=== PATIENT | female | born 1990 | race African-American/Black ===

== ENCOUNTER 2016-12-12 09:30 | Emergency (ER) | payer OTHER ==
[~2016-12-12] VITALS: Ht 162.6 cm; Wt 63.0 kg
[~2016-12-12 09:30] MED LIST: AMOXICILLIN500 MG PO; CIPROFLOXACN500 MG PO; ERYTHROMYCIN O3.5 GM OU; IBUPROFEN600 MG PO; LORTAB 7.57.5 MG PO; MACROBID100 MG PO; NO HOME MEDS; PRE-NATAL PO
[2016-12-12] MEDS ORDERED: MOTRIN800 MG PO (10:23)
[2016-12-12 10:45] VITALS: BP 103/71
== END 2016-12-12 10:45 | disposition home or self-care (01) | DRG 563 ==
LOC: ED 09:30
PROC: 2W3DX1Z Immobilization of Left Lower Arm using Splint (ICD-10-PCS; principal; 2016-12-12)
DX: S63.502A Unspecified sprain of left wrist, initial encounter (principal); W18.30XA Fall on same level, unspecified, initial encounter; Y93.89 Activity, other specified; Y92.009 Unspecified place in unspecified non-institutional (private) residence as the place of occurrence of the external cause

== ENCOUNTER 2017-11-03 21:24 | Emergency (ER) | payer OTHER ==
[~2017-11-03] VITALS: Ht 162.6 cm; Wt 59.1 kg
[~2017-11-03 21:24] MED LIST changes: +MOTRIN800 MG PO
[2017-11-03] MEDS ORDERED: AMOXICILLIN500 MG PO (21:47)
[2017-11-03] MEDS ORDERED: TRAMADOL HCL50 MG PO (21:47)
[2017-11-03] MEDS ORDERED: MOTRIN800 MG PO (21:47)
[2017-11-03 21:54] VITALS: BP 124/77
== END 2017-11-03 21:54 | disposition home or self-care (01) | DRG 159 ==
LOC: ED 21:24
DX: K01.1 Impacted teeth (principal); K04.7 Periapical abscess without sinus

== ENCOUNTER 2019-12-10 22:03 | Emergency (ER) | payer SELFPAY ==
[~2019-12-10] VITALS: Ht 162.6 cm; Wt 61.3 kg
[~2019-12-10 22:03] MED LIST changes: +TRAMADOL HCL50 MG PO
[2019-12-10 22:56] LABS: IMMATURE GRANULOCYTES 0.1 % (0.0-5.0); MEAN CELL VOLUME 95.4 fL CALC (80.0-100.0); MEAN CORPUSCULAR HGB 30.8 pG CALC (26.0-32.0); MEAN CORPUSCULAR HGB CONC 32.3 g/dL CAL (32.0-36.0); NEUT# 3.32 thou/uL (2.00-7.15); RED BLOOD COUNT 4.35 mill/uL (4.20-5.60); RED CELL DISTRI WIDTH 12.3 % (11.5-15.5)
[2019-12-10 23:08] LABS: HEMATOCRIT 41.5 % (37.0-47.0); HEMOGLOBIN 13.4 g/dl (12.0-16.0)
[2019-12-10 23:23] LABS: BILIRUBIN, TOTAL 0.3 mg/dL (0.0-1.4); BUN 14 mg/dL (7-17); BUN/CREATININE RATIO 15 (12-20 (CALC)); CHLORIDE 101 mmol/l (95-108); CREATININE 0.9 mg/dL (0.5-1.0); GFR > 60 ML/MIN (>=60 (CALC)); GFR FOR AFR.AMER. > 60 ML/MIN (>=60 (CALC)); POTASSIUM 3.6 mmol/l (3.5-5.1); SGOT/AST 23 u/l (14-36); SODIUM 136 mmol/l (137-146); TOTAL PROTEIN 7.5 g/dL (6.3-8.2)
[2019-12-10 23:28] LABS: ALBUMIN 4.4 g/dL (3.2-5.0); ALKALINE PHOSPHATASE 56 u/l (38-126); ANION GAP 10 (6-22 (CALC)); CARBON DIOXIDE 29 mmol/l (22-30)
[2019-12-10] MEDS ORDERED: AMOXICILLIN500 MG PO (23:35)
[2019-12-10 23:50] VITALS: BP 184/80
== END 2019-12-10 23:50 | disposition home or self-care (01) | DRG 153 ==
LOC: ED 22:03
PROVIDERS: Emergency Medicine
DX: J02.0 Streptococcal pharyngitis (principal); F17.210 Nicotine dependence, cigarettes, uncomplicated

== ENCOUNTER 2021-08-12 12:09 | Emergency (ER) | payer MEDICAID ==
[~2021-08-12] VITALS: Ht 162.6 cm; Wt 59.0 kg
[2021-08-12 12:13] VITALS: BP 127/85
[2021-08-12 12:20] VITALS: BP 106/78
[2021-08-12 12:41] VITALS: BP 109/82
[2021-08-12 14:01] VITALS: BP 109/68
[2021-08-12 14:21] VITALS: BP 94/53
[2021-08-12 15:03] VITALS: BP 94/53
== END 2021-08-12 15:28 | disposition home or self-care (01) ==
LOC: ED 12:09
DX: S01.81XA Laceration without foreign body of other part of head, initial encounter (principal); F17.200 Nicotine dependence, unspecified, uncomplicated; Y00.XXXA Assault by blunt object, initial encounter

== ENCOUNTER 2022-03-03 18:15 | Emergency (ER) | payer OTHER ==
[~2022-03-03] VITALS: Ht 162.6 cm; Wt 53.0 kg
[2022-03-03 18:24] VITALS: BP 106/83
[2022-03-03] MEDS ORDERED: METHOCARBAMOL500 MG PO (19:54)
[2022-03-03] MEDS ORDERED: NAPROXEN500 MG PO (19:54)
[2022-03-03 20:04] VITALS: BP 106/83
== END 2022-03-03 20:12 | DRG 552 ==
LOC: ED 18:15
DX: S16.1XXA Strain of muscle, fascia and tendon at neck level, initial encounter (principal); Y04.0XXA Assault by unarmed brawl or fight, initial encounter; M25.512 Pain in left shoulder